=== PATIENT | male | born 1960 ===

== ENCOUNTER 2021-05-24 21:06 | Emergency (ER) | payer SELFPAY ==
[~2021-05-24] VITALS: Ht 177.8 cm; Wt 64.0 kg
[2021-05-24 21:08] VITALS: BP 138/88
--- NOTE | 2021-05-24 22:23 | NUR ---
APPLICATION INTEGRATION ARCHITECT: NIL X 1.
--- NOTE | 2021-05-24 22:41 | NUR ---
ASSISTANT FILM EDITOR: NA X 2
--- NOTE | 2021-05-24 23:44 | NUR ---
ROLL UP OPERATOR: NIL X 3
== END 2021-05-24 23:47 | disposition left against medical advice (07) ==
LOC: ED 21:20
DX: M79.604 Pain in right leg (principal); Z53.21 Procedure and treatment not carried out due to patient leaving prior to being seen by health care provider